=== PATIENT | male | born 1980 | race Caucasian/White ===

== ENCOUNTER 2020-02-18 19:09 | Emergency (ER) | payer SELFPAY ==
[~2020-02-18 19:09] MED LIST: BIAXIN500 MG PO; FLEXERIL10 MG PO; MOTRIN800 MG PO; NKHM; NORCO 325 MG-51 TAB PO; PREDNICOT20 MG PO; TOBREX OPHTH S2.5 ML OPH
[2020-02-18] MEDS ORDERED: Tobrex Ophth S2.5 ML OPH (20:04)
[2020-02-18] MEDS ORDERED: ACULAR 3ML 3 ML5 ML OPH (20:04)
== END 2020-02-18 20:35 | disposition home or self-care (01) ==
LOC: ED 19:09
DX: T15.91XA Foreign body on external eye, part unspecified, right eye, initial encounter (principal); S05.01XA Injury of conjunctiva and corneal abrasion without foreign body, right eye, initial encounter; Z88.0 Allergy status to penicillin; Z79.899 Other long term (current) drug therapy; X58.XXXA Exposure to other specified factors, initial encounter; Y93.89 Activity, other specified; Y92.89 Other specified places as the place of occurrence of the external cause; Y99.8 Other external cause status

== ENCOUNTER 2021-02-10 19:39 | Emergency (ER) | payer BC ==
[~2021-02-10] VITALS: Ht 170.1 cm; Wt 81.6 kg
[~2021-02-10 19:39] MED LIST changes: +ACULAR 3ML 3 ML5 ML OPH; +Tobrex Ophth S2.5 ML OPH
== END 2021-02-10 22:11 | disposition home or self-care (01) ==
LOC: ED 19:39
DX: S52.125A Nondisplaced fracture of head of left radius, initial encounter for closed fracture (principal); Z88.0 Allergy status to penicillin; Z79.2 Long term (current) use of antibiotics; Z79.899 Other long term (current) drug therapy; V89.2XXA Person injured in unspecified motor-vehicle accident, traffic, initial encounter; Y93.89 Activity, other specified; Y92.89 Other specified places as the place of occurrence of the external cause; Y99.8 Other external cause status

== ENCOUNTER 2023-12-10 11:42 | Emergency (ER) | payer BC ==
[~2023-12-10] VITALS: Wt 106.6 kg
[2023-12-10] MEDS ORDERED: Cyclobenzaprine Hydrochlorid 10 MG TAB PO ONE (12:40)
[2023-12-10] MEDS ORDERED: IBUPROFEN 800 MG TAB PO ONE (12:40)
[2023-12-10] MEDS ORDERED: MELOXICAM7.5 MG PO (14:12)
[2023-12-10] MEDS ORDERED: CYCLOBENZAPRINE10 MG PO (14:12)
== END 2023-12-10 14:17 | disposition home or self-care (01) ==
LOC: ED 11:42
DX: S39.012A Strain of muscle, fascia and tendon of lower back, initial encounter (principal); M54.30 Sciatica, unspecified side; Z88.0 Allergy status to penicillin; Z79.2 Long term (current) use of antibiotics; Z79.899 Other long term (current) drug therapy; X58.XXXA Exposure to other specified factors, initial encounter; Y93.89 Activity, other specified; Y92.89 Other specified places as the place of occurrence of the external cause; Y99.8 Other external cause status